=== PATIENT | male | born 1990 | race Caucasian/White ===

== ENCOUNTER 2018-10-21 04:30 | Emergency (ER) | payer SELFPAY ==
[~2018-10-21] VITALS: Ht 177.8 cm; Wt 86.2 kg
--- NOTE | 2018-10-21 04:40 | NUR ---
PATIENT WALKED INTO ER C/O ANXIETY ATTACK. PATIENT STATES C/O NECK TIGHTNESS AND PALPITATION.
[2018-10-21] MEDS ORDERED: LORAZEPAM 1 MG TABLET ONE (04:54)
--- NOTE | 2018-10-21 04:56 | NUR ---
Patient discharged to home in stable conditon WITH FRIEND TAKING PATIENT HOME. Written and verbal after care instructions given. Patient verbalizes understanding of instructions. WALKED OUT OF ER WITH NO DISTRESS NOTED
[2018-10-21 04:59] VITALS: BP 115/70
[2018-10-21] MEDS ORDERED: LORAZEPAM 0.5 MG TABLET PO ONE (05:00)
== END 2018-10-21 05:00 | disposition home or self-care (01) ==
LOC: ER 04:38
DX: F41.9 Anxiety disorder, unspecified (principal)
CPT/HCPCS: A4663